=== PATIENT | female | born 1945 | race Two or more races ===

== ENCOUNTER 2019-09-11 09:26 | Day surgery (SDC) | payer OTHER ==
[~2019-09-11 09:26] MED LIST: CIPRO500 MG PO; INTEGRA F CAPS1 EACH PO; INTESTINEX1 CA1 PO; Levsin/Sl 0.125 MG TAB.SUBL PO; PROTONIX40 MG PO; ULTRACET PO
== END 2019-09-11 13:30 | disposition home or self-care (01) ==
LOC: AMB-ENDOS 09:26
DX: K64.8 Other hemorrhoids (principal)